=== PATIENT | male | born 1965 | race Hispanic/Latino ===

== ENCOUNTER 2018-09-18 08:08 | Day surgery (SDC) | payer BC ==
[2018-09-07 14:40] VITALS: BMI 24.3
[2018-09-18] MEDS ORDERED: Midazolam 2 MG/2 ML VIAL ONE (09:20)
[2018-09-18] MEDS ORDERED: Propofol 10 mg/ml Inj (20 ML) ONE (09:20)
[2018-09-18] MEDS ORDERED: Sodium Chloride 0.9% 1,000 ML IV SCH (10:15)
[2018-09-18 11:33] VITALS: BP 121/77; PULSE 60; RESP 16; TEMP 97.6; O2SAT 97
== END 2018-09-18 11:17 | disposition home or self-care (01) ==
LOC: ENDO 08:08
PROVIDERS: ATTEND Internal Medicine Gastroenterology
DX: Z12.11 Encounter for screening for malignant neoplasm of colon (principal); K63.5 Polyp of colon; K57.30 Diverticulosis of large intestine without perforation or abscess without bleeding; K64.1 Second degree hemorrhoids; E11.9 Type 2 diabetes mellitus without complications; E78.5 Hyperlipidemia, unspecified
CPT/HCPCS: 45380; 45385; 88305; J2001; J2250; J2704; J3010; J7030